=== PATIENT | female | born 1985 | race Caucasian/White ===

== ENCOUNTER → 2024-04-02 | Outpatient (CLI) | payer OTHER, SELFPAY ==
--- NOTE | 2024-04-02 10:00 | XR_ITS ---
Examination: Transvaginal ultrasound of the pelvis, complete Technique: Transvaginal sonographic images pelvis performed using condon scale imaging Exam date and time: April 02, 2024 1027 hours INDICATIONS: Irregular painful menses beginning April 2023 worse the last month with sharp pain in the pelvic and rectal region FINDINGS: Uterus 10.9 x 6.1 x 8.1 cm Anterior fundal mass 3.8 x 2.6 x 3.9 cm Endometrial stripe 2.8 cm Right ovary obscured by bowel gas Left ovary 3.2 x 2.1 x 3.9 cm arterial flow cyst with internal echoes 16 x 12 x 14 mm IMPRESSION: Anterior uterine fundal mass 3.8 x 2.6 x 3.9 cm Abnormally thickened heterogeneous endometrial stripe, differential would include retained products of conception, clinical correlation advised, suggest short-term follow-up transvaginal pelvic sonography.
== END | disposition home or self-care (01) ==
PROVIDERS: PCP Family Medicine; Referring Provider Family Medicine; Visit Provider Family Medicine
DX: R19.00 Intra-abdominal and pelvic swelling, mass and lump, unspecified site (principal); R93.89 Abnormal findings on diagnostic imaging of other specified body structures
CPT/HCPCS: 76830

== ENCOUNTER → 2024-04-22 | Outpatient (CLI) | payer OTHER, SELFPAY ==
--- NOTE | 2024-04-22 | XR_ITS ---
Examination: Venous duplex lower extremity sonogram, bilateral. Date and time of exam: April 22, 2024 1322 hours INDICATIONS: Right calf pain beginning 3 weeks ago Technique: Multiple sonographic images of the deep venous system have been obtained. B-mode/2-D grayscale imaging of vascular structures and Doppler spectral analysis (waveforms) and color performed Both legs are examined. Findings: Deep venous systems do not demonstrate abnormal echogenicity. All visualized deep veins exhibit compressibility. All visualized deep veins exhibit augmentation. Impression: Negative for deep vein thrombosis
--- NOTE | 2024-04-22 | XR_ITS ---
Examination: Retroperitoneal ultrasound, complete Technique: Multiple high resolution grayscale images of the retroperitoneum obtained, including kidneys and bladder. 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
== END | disposition home or self-care (01) ==
PROVIDERS: PCP Internal Medicine; Referring Provider Nurse Practitioner Family; Visit Provider Nurse Practitioner Family
DX: N28.89 Other specified disorders of kidney and ureter (principal); Z90.5 Acquired absence of kidney; M79.661 Pain in right lower leg
CPT/HCPCS: 76770; 93970

== ENCOUNTER → 2024-05-15 | Outpatient (CLI) | payer OTHER, SELFPAY ==
--- NOTE | 2024-05-15 14:00 | XR_ITS ---
Examination: MRI brain without intravenous contrast. Date and time of exam: May 15, 2024 1533 hours INDICATIONS: Blurred vision dizziness episodes beginning 6 months ago Technique: Multiple axial and sagittal images of the brain obtained. Siemens high-resolution 1.5 Terra short bore scanners utilized. Sagittal sections, T1-weighted, TR 500, TE 14, are performed. Axial sections proton-density and T2-weighted have been obtained. Inversion recovery axial images, TR 9, 260, TE 111, TI 2500. Diffusion weighted images, axial sections, TR 4800, TE 128, B value 1000 Axial sections, ADC map, TR 4800, TE 128 Findings: Enlargement of the sella turcica is not present. The optic chiasm and infundibular are not remarkable. Prepontine and interpeduncular cisterns are not enlarged. There is no localized enlargement of the medulla or naomie. Fourth ventricle and cerebellar tonsils appear normal in position. No subacute area of hemorrhage density is seen. Mass in the cerebellopontine angle region is not evident. Globes symmetrical. Orbital musculature including medial lateral rectus muscles do not exhibit abnormality. Diffusion-weighted images demonstrate no focus of restricted diffusion. Increased white matter signal evident, periventricular as well as scattered punctate foci increased signal in the left frontal parietal white matter, for instance FLAIR image 16 Mass effect upon the ventricular system is not identified. Impression: Findings consistent with demyelinating disease
== END | disposition home or self-care (01) ==
PROVIDERS: Referring Provider Internal Medicine; Visit Provider Internal Medicine
DX: R42 Dizziness and giddiness (principal)
CPT/HCPCS: 70551

== ENCOUNTER → 2024-05-18 | Outpatient (CLI) | payer OTHER, SELFPAY ==
--- NOTE | 2024-05-18 13:30 | XR_ITS ---
Examination: MRI cervical spine without intravenous contrast Date and time of exam: May 18, 2024 1450 hrs. Indications: Neck pain beginning 2010 radiating down the right arm Technique: Multiple axial and sagittal sections of the cervical spine to been obtained. T2 weighted sagittal sections, TR 3, 270, TE 117 T1-weighted sagittal sections, TR 500, TE 11 T1-weighted axial sections, TR 607, TE 12, axial sections TR 18, TE 27 and T2 weighted transverse sections, TR 3920, TE 122. Findings: Straightening normal cervical lordosis No cervical fracture Disc desiccation C4-C5 Intact odontoid No localized enlargement cervical cord C2-C3 no disc protrusion C3-C4 advanced right neural foraminal stenosis C4-C5 2 mm right paracentral disc bulge C5-C6 moderate right neural foraminal stenosis C6-C7 no disc protrusion C7-T1 no disc protrusion Impression: C3-C4 advanced right neural foraminal stenosis C5-C6 moderate right neural foraminal stenosis
== END | disposition home or self-care (01) ==
LOC: SMRI 13:12
PROVIDERS: PCP Family Medicine; Referring Provider Internal Medicine; Visit Provider Internal Medicine
DX: M48.02 Spinal stenosis, cervical region (principal)
CPT/HCPCS: 72141

== ENCOUNTER → 2024-06-01 | Outpatient (CLI) | payer OTHER, SELFPAY ==
--- NOTE | 2024-06-01 16:09 | XR_ITS ---
Examination: Left hand 2 views Technique one AP lateral left hand 2 views Exam date and time: June 01, 2024 at 1529 hrs. Indications: Injury to the hand today with third digit pain. Findings: No acute fracture No dislocation Impression: No acute fracture
== END | disposition home or self-care (01) ==
PROVIDERS: PCP Family Medicine; Referring Provider Nurse Practitioner Family; Visit Provider Nurse Practitioner Family
DX: S69.92XA Unspecified injury of left wrist, hand and finger(s), initial encounter (principal); X58.XXXA Exposure to other specified factors, initial encounter
CPT/HCPCS: 73120